=== PATIENT | male | born 1985 | race Caucasian/White ===

== ENCOUNTER → 2016-06-23 | Outpatient (CLI) | payer BC ==
--- NOTE | 2016-06-23 15:51 | DIAGNOSTIC IMAGING REPORT ---
PA CHEST WITH BILATERAL RIB SERIES CLINICAL HISTORY: Atypical chest pain. Bilateral rib pain. FINDINGS: A PA chest radiograph with 9 additional views from a bilateral rib series are obtained. No prior studies are available for comparison at the time of dictation. The cardiomediastinal silhouette is unremarkable. The lungs and pleural spaces are clear. No pneumothorax is seen. There is no radiographic evidence of rib fracture on the bilateral rib series. The remainder of the bony thorax is grossly intact. IMPRESSION: 1. The lungs are clear. 2. There is no radiographic evidence of rib fracture as clinically queried. Electronically signed by: Aly Frausto M.D. 06/23/2016 3:49 PM Dictated Date/Time: 06/23/2016 3:47 PM
== END | disposition home or self-care (01) ==
LOC: C.RADBC 15:19
PROVIDERS: ATTEND Internal Medicine Geriatric Medicine
DX: R07.9 Chest pain, unspecified (principal)

== ENCOUNTER → 2016-07-15 | Outpatient (CLI) | payer BC ==
[2016-07-15 13:11] LABS: CHOLESTEROL/HDL RATIO 2.8
== END | disposition home or self-care (01) ==
LOC: C.LABBFT 08:32
PROVIDERS: ATTEND Physician Assistant Medical
DX: Z00.00 Encounter for general adult medical examination without abnormal findings (principal)